=== PATIENT | male | born 1995 | race Caucasian/White ===

== ENCOUNTER 2018-01-21 04:14 | Inpatient (IN) | payer MEDICAID, OTHER ==
--- NOTE | 2018-01-21 04:52 | ED ---
General Adult HPI - General Chief complaint: Psychiatric Symptoms Stated complaint: mental health Time Seen by Provider: 01/21/18 04:42 Source: patient, RN notes reviewed Mode of arrival: ambulatory Limitations: no limitations - History of Present Illness Initial comments: 22-year-old male presented for evaluation of possible suicidal ideation. Patient denies current suicidal ideation. He is petitioned by the police, according to police he sent a text message to his ex-girlfriend stating that he he was going to kill himself. Patient denies having missed text message. He does admit to being anxious. Denies any physical complaints. He has no chronic medical problems. He has never been evaluated for psychiatric purposes in the past. Patient denies any suicide attempt, or any ingestion. - Related Data Home Medications Medication Instructions Recorded Confirmed No Known Home Medications [No 01/21/18 01/21/18 Known Home Medications] Allergies Allergy/AdvReac Type Severity Reaction Status Date / Time No Known Allergies Allergy Verified 01/21/18 06:25 Review of Systems ROS Statement: Those systems with pertinent positive or pertinent negative responses have been documented in the HPI. ROS Other: All systems not noted in ROS Statement are negative. Past Medical History Past Medical History: No Reported History History of Any Multi-Drug Resistant Organisms: None Reported Past Surgical History: No Surgical Hx Reported Past Psychological History: Anxiety Smoking Status: Never smoker Past Alcohol Use History: None Reported Past Drug Use History: None Reported General Exam Limitations: no limitations General appearance: alert, in no apparent distress Head exam: Present: atraumatic, normocephalic Eye exam: Present: normal appearance, PERRL ENT exam: Present: normal exam Neck exam: Present: normal inspection. Absent: tenderness, meningismus Respiratory exam: Present: normal lung sounds bilaterally. Absent: respiratory distress, wheezes Cardiovascular Exam: Present: regular rate, normal rhythm Extremities exam: Present: normal inspection, normal capillary refill. Absent: pedal edema Neurological exam: Present: alert, oriented X3, CN II-XII intact. Absent: motor sensory deficit Psychiatric exam: Present: anxious, flat affect Skin exam: Present: warm, dry, intact Course Vital Signs 01/21/18 04:25 Temperature 96.8 F L Pulse Rate 76 Respiratory 19 Rate Blood Pressure 139/82 O2 Sat by Pulse 100 Oximetry Medical Decision Making - Medical Decision Making Patient evaluated by EPS, he will be admitted for further psychiatric evaluation and treatment. - Lab Data Lab Results 01/21/18 Range/Units 04:35 Urine Opiates Screen Not Detected (NotDetected) Ur Oxycodone Screen Not Detected (NotDetected) Urine Methadone Screen Not Detected (NotDetected) Ur Propoxyphene Screen Not Detected (NotDetected) Ur Barbiturates Screen Not Detected (NotDetected) U Tricyclic Antidepress Not Detected (NotDetected) Ur Phencyclidine Scrn Not Detected (NotDetected) Ur Amphetamines Screen Not Detected (NotDetected) U Methamphetamines Scrn Not Detected (NotDetected) U Benzodiazepines Scrn Not Detected (NotDetected) Urine Cocaine Screen Not Detected (NotDetected) U Marijuana (THC) Screen Detected H (NotDetected) Disposition Clinical Impression: Depression, Suicidal ideation Disposition: ADMITTED IP TO THIS [facility] Condition: Stable Referrals: None,Stated [Primary Care Provider] - 1-2 days Decision to Admit Reason: Admit from EC Decision Date: 01/21/18 Decision Time: 06:45
[2018-01-21 05:02] LABS: Amphetamine Screen,Urine Not Detected (NotDetected); Barbiturate Screen,Urine Not Detected (NotDetected); Benzodiazepines Screen,Urine Not Detected (NotDetected); Cocaine Screen,Urine Not Detected (NotDetected); Methadone Screen, Urine Not Detected (NotDetected); Opiate Screen,Urine Not Detected (NotDetected); Oxycodone Screen, Urine Not Detected (NotDetected); Phencyclidine Screen,Urine Not Detected (NotDetected); Tricyclic Antidepressant,Urine Not Detected (NotDetected); Urn Cannabinoid Scrn Detected (NotDetected)
[2018-01-21 07:24] VITALS: RESP 16
[2018-01-21] MEDS ORDERED: ACETAMINOPHEN TAB 325 MG TAB PO PRN (07:34)
[2018-01-21] MEDS ORDERED: MAG HYDROX/AL HYDROX/SIMETH 30 ML CUP PO PRN (07:34)
[2018-01-21] MEDS ORDERED: MAGNESIUM HYDROXIDE 2,400 MG/10 ML CUP PO PRN (07:34)
--- NOTE | 2018-01-21 11:09 | P.HPMEDMHU ---
History of Present Illness H&P Date: 01/21/18 Chief Complaint: Suicidal ideation Patient is a 22-year-old male with no known past medical history, no past surgical history and no psychiatric history who was admitted to the inpatient psychiatric unit for possible suicidal ideation. Patient was brought in to the hospital by the police after reportedly had sent a text message to his girlfriend saying he was going to end his life. Patient currently denies any suicidal ideation. Denies any depression, hallucinations, denies any prior medical histories. Denies any recent illnesses. Denies any fever or chills. Review of Systems CONSTITUTIONAL: No weight loss, fever, chills, weakness or fatigue. HEENT: Eyes: No visual loss, blurred vision, double vision or yellow sclerae. Ears, Nose, Throat: No hearing loss, sneezing, congestion, runny nose or sore throat. SKIN: No rash or itching. CARDIOVASCULAR: No chest pain, chest pressure or chest discomfort. No palpitations or edema. RESPIRATORY: No shortness of breath, cough or sputum. GASTROINTESTINAL: No anorexia, nausea, vomiting or diarrhea. No abdominal pain or blood NEUROLOGICAL: No headache, dizziness, syncope, paralysis, ataxia, numbness or tingling in the extremities. No change in bowel or bladder control. MUSCULOSKELETAL: No muscle, back pain, joint pain or stiffness. HEMATOLOGIC: No anemia, bleeding or bruising. LYMPHATICS: No enlarged nodes. No history of splenectomy. PSYCHIATRIC: No history of depression. ENDOCRINOLOGIC: No reports of sweating, cold or heat intolerance. No polyuria or polydipsia. ALLERGIES: No history of asthma Past Medical History Past Medical History: No Reported History History of Any Multi-Drug Resistant Organisms: None Reported Past Surgical History: No Surgical Hx Reported Past Anesthesia/Blood Transfusion Reactions: No Reported Reaction, Unable to Obtain (The EMR will not let me canceled this selection) Past Psychological History: Anxiety Smoking Status: Never smoker Past Alcohol Use History: None Reported Past Drug Use History: None Reported - Past Family History Father Family Medical History: No Reported History Mother Family Medical History: No Reported History Medications and Allergies Home Medications Medication Instructions Recorded Confirmed Type No Known Home Medications [No 01/21/18 01/21/18 History Known Home Medications] Allergies Allergy/AdvReac Type Severity Reaction Status Date / Time No Known Allergies Allergy Verified 01/21/18 07:05 Physical Exam Vitals: Vital Signs Temp Pulse Pulse Resp BP BP Pulse Ox 01/21/18 07:23 96.4 F L 75 16 129/88 98 01/21/18 04:25 96.8 F L 76 19 139/82 100 Intake and Output 01/20/18 01/21/18 01/21/18 22:59 06:59 14:59 Other: Weight 65.771 kg 63.367 kg Patient Weight 01/22/18 06:59 Weight 63.367 kg GENERAL: Well-developed, well-nourished in no apparent distress. AAOx4 HEENT: Normocephalic and atraumatic. Extraocular muscles are intact. Pupils are equal, round, and reactive to accommodation.Mucous membranes are moist NECK: Supple. No JVD LUNGS: Bilateral air entry, no noted wheeze, rhonci. Normal respiratory effort, no accessory muscle use HEART: S1 and S2 of normal intensity, no appreciated murmurs ABDOMEN: Soft, nontender, and nondistended. Positive bowel sounds. EXTREMITIES: No noted edema. NEUROLOGIC: Cranial nerves II through XII are grossly intact. Normal range of motion. 4/4 bilateral upper extremity and bilateral lower extremity strength PSYCHIATRIC: Denies suicidal or homicidal ideations. Appropriate affect. SKIN: No ulceration noted. No rash noted. Cranial Nerve Examination - Cranial Nerves Cranial Nerve I- Olfactory: Intact Cranial Nerve II- Optic: Intact Cranial Nerve III- Oculomotor: Intact Cranial Nerve IV- Trochlear: Intact Cranial Nerve V- Trigeminal: Intact Cranial Nerve - Abducens: Intact Cranial Nerve VII- Facial: Intact Cranial Nerve VIII- Auditory: Intact Cranial Nerve IX- Glossopharyngeal: Intact Cranial Nerve X- Vagus: Intact Cranial Nerve XI- Accessory: Intact Cranial Nerve XII- Hypoglossal: Intact Results Labs: Abnormal Lab Results - Last 24 Hours (Table) 01/21/18 Range/Units 04:35 U Marijuana (THC) Screen Detected H (NotDetected) Thrombosis Risk Factor Assmnt - DVT/VTE Prophylaxis DVT/VTE Prophylaxis: Low risk, early ambulation encouraged - Choose All That Apply Any of the Below Risk Factors Present?: No Other Risk Factors: No Other congenital or acquired thrombophilia - If yes, enter type in comment: No Thrombosis Risk Factor Assessment Level: Very Low Risk Assessment and Plan (1) Depression Current Visit: Yes Status: Acute Code(s): F32.9 - MAJOR DEPRESSIVE DISORDER , SINGLE EPISODE, UNSPECIFIED SNOMED Code(s): 42956090 (2) Suicidal ideation Current Visit: Yes Status: Acute Code(s): R45.851 - SUICIDAL IDEATIONS SNOMED Code(s): 1868619 Plan: Admitted to the inpatient psychiatric unit for likely major depressive episode with reported suicidal ideation, patient denies current suicidal ideation. Management as per inpatient psychiatric team. Normal physical exam with no noted neurological deficits, no prior medical history, no prior surgical history ; nothing to suggest any medical etiology for the patient's depressive episode. Patient denies any drug use. Thank you for involving us in the care of your patient, please feel free to call us should any questions arise.
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
[2018-01-22 07:05] VITALS: BP 134/64; PULSE 79; TEMP 98.3
[2018-01-22 08:42] VITALS: BMI 18.9
--- NOTE | 2018-01-22 09:45 | P.DS ---
Providers Date of admission: 01/21/18 06:45 Expected date of discharge: 01/22/18 Attending physician: Becky Weiss MD Consults: 01/21/18 07:34 Consult Physician Routine Consulting Provider: Nitish Nino Consult Reason/Comments: H&P Do you want consulting provider notified?: Already Contacted Primary care physician: Stated None Hospital Course: Discharge Diagnosis: Adjustment disorder not specified Reason for Admission: Patient is 22-year-old male was brought to the hospital by the police after they were notified by his ex-girlfriend. Patient was observed found in his car sleeping in a park and it states on the petition that the police "observed" that he had sent a text to his ex-girlfriend stating that he was going to kill himself. Patient states that he was in his car in the park and accidentally fell asleep, had no intention of sleeping in the park and states that he was there because his roommate had his girlfriend over and he wanted to be alone. He states that he had no plans to spend the night in the park or sleep there. He denies sending a text to his ex-girlfriend stating that the 2 of them do not have a good relationship. He states he had no intention of hurting himself and has never felt suicidal nor sent a text stating that he was thinking of suicide. He states that he and his ex- girlfriend broke up in March and it was her request to break off the relationship. He states that they have a son who was almost a-year-old together and that he has not had any conversations with his ex-girlfriend for the last 3 weeks. He states that his son is picked up either by his mother or the patient's ex-girlfriend family members bring the son over 2 visit with him. Patient lives in an apartment with a roommate. Patient states that he has never felt suicidal and denies any prior suicide attempts in the past or thoughts of suicide. He states that he has not been depressed in the past, states that he did see some counselors in the past because he was easily frustrated, he states this was trying to cope with having a son when he was so young. He states he went 1-2 times was never given any medication and found that it was helpful. Patient does not endorse any symptoms of psychosis, no paranoid ideation, he does not endorse any symptoms of nerissa and does not endorse any symptoms of depression. He states when he was feeling frustrated he was still caring for his ADLs and working and at that time was just feeling overwhelmed with the of a son and the fact that he was so young. He states that he and his girlfriend had not planned on the at that time. He states that they lived together after he graduated from high school but that she ended the relationship. Mental status on admission: Appearance/Attitude: Patient is dressed in a hospital gown, makes good eye contact and is cooperative Behavior: Patient does not display any psychomotor agitation or retardation. Speech/Language: Patient's speech is spontaneous and of normal volume and rhythm and he is coherent. Thought Process: Patient is goal-directed there is no evidence of loose associations or flight of ideas. Thought Content: Patient denies auditory or visual hallucinations and no delusions or paranoid ideation could be elicited. Patient states that that he has no idea why his ex-girlfriend with state that she sent him a text, why the police were even in the park. He states he went to the park to get away from his roommate in his girlfriend and wanted to be alone and had no intention of sleeping in the park. He denies that he was feeling suicidal yesterday and never sent a text to his ex-girlfriend stating that he was going to kill himself. Patient is unable to explain to me what text the police observed. Patient states that prior to his admission he was sleeping and eating well. And he was hopeful to go back to work soon. Suicidal/Homicidal Ideation: Patient denies any current suicidal or homicidal ideation. Sensorium/Cognition: Patient is alert and oriented to person, place, and time and his recent and remote memory are grossly intact Mood/Affect: Patient's mood was euthymic and his affect was appropriate Insight/Judgment: Patient's insight and judgment are fair Hospital Course: Patient was admitted on a voluntary basis, routine observation and group and activity therapy were ordered. Patient also had routine laboratory studies and a medical consultation. Patient stated that he had never sent these texts to his ex-girlfriend, the petition stated that the police observed these techs it is unclear on whose phone they observed him. Police found the patient in a park in his car. Following asleep after he had gone there to be alone. Patient states he was not there to spend the night and states he has never had any suicidal thoughts and is never attempted suicide. Patient reported that his relationship with his ex-girlfriend has been conflicted since she ended the relationship. Patient did not express any symptoms of depression, or express any suicidal ideation while on the unit. Patient attended groups and activities. Patient stated he was ready to return home to live with his roommate and return to work. Patient requested counseling to assist him in coping with the relationship with his ex-girlfriend if she is the mother of their 1-year-old son. Allergies No Known Allergies Allergy (Verified 01/21/18 07:05) Laboratory Last Values Urine Opiates Screen Not Detected (NotDetected) 01/21/18 04:35 Ur Oxycodone Screen Not Detected (NotDetected) 01/21/18 04:35 Urine Methadone Screen Not Detected (NotDetected) 01/21/18 04:35 Ur Propoxyphene Screen Not Detected (NotDetected) 01/21/18 04:35 Ur Barbiturates Screen Not Detected (NotDetected) 01/21/18 04:35 U Tricyclic Antidepress Not Detected (NotDetected) 01/21/18 04:35 Ur Phencyclidine Scrn Not Detected (NotDetected) 01/21/18 04:35 Ur Amphetamines Screen Not Detected (NotDetected) 01/21/18 04:35 U Methamphetamines Scrn Not Detected (NotDetected) 01/21/18 04:35 U Benzodiazepines Scrn Not Detected (NotDetected) 01/21/18 04:35 Urine Cocaine Screen Not Detected (NotDetected) 01/21/18 04:35 U Marijuana (THC) Screen Detected (NotDetected) H 01/21/18 04:35 Discharge Mental Status: Appearance/Attitude: Patient was dressed in a hospital gown, made good eye contact and was cooperative. Behavior: Patient did not exhibit any psychomotor agitation or retardation. Speech/Language: Patient's speech was spontaneous of normal volume and rhythm and he was coherent. Thought Process: Patient was goal-directed, there is no evidence of loose associations or flight of ideas and he was not circumstantial or tangential. Thought Content: Patient denied auditory or visual hallucinations and no delusions or paranoid ideation were elicited. Patient states that he is not feeling depressed but does have a conflicted relationship with his ex- girlfriend and when he has visitation with his son he either picks up his son from relatives of hers or his mother picks up his son directly from his ex- girlfriend. Patient reports that he is eager to return home and work. Patient states he slept 6 hours last night and his appetite is good. Suicidal/Homicidal Ideation: Patient denies any current suicidal or homicidal ideation. Sensorium/Cognition: Patient is alert and oriented to person, place, time and his recent and remote memory are grossly intact Mood/Affect: Patient's mood is euthymic and his affect is appropriate. Insight/Judgment: Patient's insight and judgment are intact. Risk Assessment: Patient's risk for self-harm is low. Discharge Plan: Patient will be discharged and will return home to live with his roommate and return to work. Patient was not placed on any psychotropic medication and is not taking any medicines at this time for any medical problems. Patient requested counseling to assist him in coping with his conflicted relationship with the mother of his son. [facility] Patient Condition at Discharge: Stable Plan - Discharge Summary Discharge Rx Participant: No New Discharge Prescriptions: Continue No Known Home Medications [No Known Home Medications] Discharge Medication List No Known Home Medications [No Known Home Medications] 01/21/18 [History] Follow up Appointment(s)/Referral(s): None,Stated [Primary Care Provider] - 1-2 days Intake, Intake [Other] - 1 Week (anastasiia/ Cheyanne Griffin on 01/24/18 @ 9am. Fee for service is $70 until insurance is active.) Discharge Disposition: HOME SELF-CARE
== END 2018-01-22 14:17 | disposition home or self-care (01) | DRG 882 ==
LOC: EC 04:14 → 3MHU 06:45
PROVIDERS: ADMIT Psychiatry & Neurology Psychiatry; ATTEND Psychiatry & Neurology Psychiatry
DX: F43.20 Adjustment disorder, unspecified (principal); M54.9 Dorsalgia, unspecified; Z79.899 Other long term (current) drug therapy
CPT/HCPCS: 80306; 82075; 99285